=== PATIENT | female | born 1955 | race Hispanic/Latino ===

== ENCOUNTER 2017-12-07 11:49 | Emergency (ER) | payer OTHER ==
[~2017-12-07] VITALS: Ht 165.1 cm; Wt 71.7 kg
[~2017-12-07 11:49] MED LIST: ASPIRIN EC81 M1 PO; DULOXETINE HCL30 MG PO; ESCITALOPRAM OX20 MG PO; FENOFIBRATE145 M1 PO; FLEXERIL 5MG TAB5 MG PO; GABAPENTIN300 M2 PO; IBUPROFEN800 M1 PO; KEFLEX500 MG PO; LETROZOLE2.5 M1 PO; NORCO 5-325 TA1 EACH PO; PANTOPRAZOLE SO40 M1 PO; PERCOCET 325 MG1 TA2 PO; PROTONIX 40MG T40 MG PO; SIMVASTATIN40 MG PO; TYLENOL TAB 32325 MG PO; TYLENOL WITH C1 EACH PO
--- NOTE | 2017-12-07 12:18 | ED INFLUENZA/URI COMPLAINT ---
History of Present Illness General Chief Complaint: General Adult Stated Complaint: COUGHING AND LOST HER VOICE AND VOMITING BLOOD Source: patient, family, old records Exam Limitations: no limitations Vital Signs & Intake/Output Vital Signs & Intake/Output Vital Signs Date Time Temp Pulse Resp B/P B/P Pulse O2 O2 Flow FiO2 Mean Ox Delivery Rate 12/07 1408 97.1 72 18 113/65 97 Room Air 12/07 1245 98 12/07 1221 100 Room Air 12/07 1202 98.1 76 18 119/71 98 Room Air Allergies Coded Allergies: morphine (VOMITING BLOOD 12/27/16) shellfish derived (N/V/D 12/27/16) Reconcile Medications Acetaminophen (Tylenol Extra Strength) 500 MG TABLET 1 TAB PO TID PRN PAIN ( Reported) Albuterol Sulfate (Proair Hfa) 90 MCG HFA.AER.AD 2 PUF INH Q4-6 PRN PRN BRONCHITIS Aspirin (Ecotrin*) 81 MG TABLET.DR 1 TAB PO DAILY HEART/BLOOD (Reported) Azithromycin (Zithromax) 250 MG TABLET 1 DP PO AD BRONCHITIS 2 the first day followed by 1 for days 2-5 Codeine Phosphate/Guaifenesi (Guaifenesin-Codeine Syrup) 10 MG-100 MG/5 ML (5 ML ) LIQUID 10 ML PO Q6HR PRN COUGH Duloxetine HCl 30 MG CAPSULE.DR 1 CAP PO DAILY NERVE PAIN (Reported) Escitalopram Oxalate 20 MG TABLET 1 TAB PO DAILY MENTAL HEALTH (Reported) Fenofibrate Nanocrystallized (Fenofibrate) 145 MG TABLET 1 TAB PO DAILY CHOLESTEROL/TRIGLYCERIDES (Reported) Gabapentin 300 MG CAPSULE 1 CAP PO DAILY NERVE PAIN (Reported) Ibuprofen 800 MG TABLET 1 TAB PO TID PRN PAIN Letrozole (Femara) 2.5 MG TABLET 1 TAB PO DAILY CANCER (Reported) Pantoprazole Sodium 40 MG TABLET.DR 1 TAB PO DAILY GI (Reported) Triage Note: RECEIVED 62 YO FEMALE C/O COLD AND COUGHING X ONE WEEK. PT STARTED LOOSING HER VOICE LAST WEEKEND, STARTED COMING BACK BUT COUGH GOT WORSE AND LOOSING VOICE. PT REPORTS MID STERNAL CHEST PAIN, STARTED A FEW DAYS AGO WHEN HER COUGH GOT WORSE. CP GETS WORSE WITH COUGHING. PT ALSO REPORTS BLOOD IN EMESIS X 3 TIMES. Triage Nurses Notes Reviewed? yes Onset: Abrupt Duration: week(s): (1), constant Timing: recent history Severity: moderate Severity Numbers: 5 Prior Episodes/Possible Cause: no prior episodes No Modifying Factors: none Associated Symptoms: denies HPI: 62-year-old female with history of breast cancer status post mastectomy nonsmoker presents to the ER for evaluation complaining of a nonproductive cough last night. She states that she noticed some blood in her vomit. She denies diarrhea or abdominal pain. She denies shortness of breath fevers however does report positive chills. No sick contacts or recent travel no leg swelling no pain with inspiration. She's been taking [id number] remedies without improvement. ([place]una) Past History Travel History Traveled to [place] past 21 day No Medical History Any Pertinent Medical History? 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 No ([place]) Review of Systems Review of Systems Constitutional: Reports: see HPI. Comments Review of systems: See HPI, All other systems negative. Constitutional, positive chills no fever, HEENT: no sore throat no congestion, no ear pain Cardiovascular: No chest pain , no palpitation Skin: no rashes, no change in skin Respiratory: No dyspnea positive cough no sputum no hemoptysis GI: positive vomiting, no diarrhea Muscle skeletal: No joint pain, no back pain Neurologic: , no headache Heme/endocrine: No bruising Immunology: No lymphadenopathy ([place]) Physical Exam Physical Exam General Appearance: well developed/nourished, no apparent distress Ears, Nose, Throat: normal ENT inspection, moist mucous membrane Comments: Well-developed well-nourished person in no acute distress HEENT: Normal EENT exam; PERRL, EOMI. HEAD is atraumatic. moist mucous membranes. Neck: Supple, normal range of motion Back: Full range of motion Cardiovascular: Regular rate and rhythms no murmur Respiratory: Chest nontender.There were no bony deformities, no asymmetry. No respiratory distress. Patient speaking in full complete sentences. Breath sounds clear to auscultation bilaterally: NO W/R/R Abdomen: Soft, nontender nondistended, Extremity: No edema, full range of motion of extremities Neuro: Alert oriented x3, motor sensory normal. There were no obvious focal neurologic abnormalities. Skin: No appreciable rash on exposed skin, skin is warm and dry. Psych: Mood and affect is normal, memory and judgment is normal. Core Measures Sepsis Present: No Sepsis Focused Exam Completed? No (Guerrero SILVER,Bryn) Progress Differential Diagnosis: influenza, pneumonia, PE, BRONCHITIS, ASTHMA Plan of Care: Orders Procedure Date/time Status Regular Diet 12/07 D Active RAPID VIRAL INFLUENZA A 12/07 1219 Complete TROPONIN LEVEL 12/07 1219 Complete LIPASE 12/07 1219 Complete D-DIMER 12/07 1219 Complete COMPREHENSIVE METABOLIC PANEL 12/07 1219 Complete CBC WITHOUT DIFFERENTIAL 12/07 1218 Complete EKG 12/07 1204 Active Laboratory Tests 12/07/17 1356: D-Dimer High Sensitivty < 200 12/07/17 1323: Anion Gap 15, Estimated GFR > 60, BUN/Creatinine Ratio 20.0, Glucose 92, Calcium 9.8, Total Bilirubin 0.8, AST 51 H, ALT 54 H, Alkaline Phosphatase 115, Troponin I < 0.01, Total Protein 8.0, Albumin 4.6, Globulin 3.4, Albumin/ Globulin Ratio 1.4, Lipase 228, CBC w Diff NO MAN DIFF REQ, RBC 4.51, MCV 88.3, MCH 30.9, MCHC 35.0, RDW 13.0, MPV 9.1, Gran % 42.8, Lymphocytes % 47.7, Monocytes % 7.4, Eosinophils % 1.6, Basophils % 0.5, Absolute Granulocytes 3.0, Absolute Lymphocytes 3.3, Absolute Monocytes 0.5, Absolute Eosinophils 0.1, Absolute Basophils 0 Microbiology 12/07 1324 NASOPHARYN: Influenza Virus A & B Rapid Smear - COMP Patient medicated with DuoNeb Robitussin with codeine labs ordered old records reviewed case discussed with Dr. Aleman agrees with plan Repeat evaluation reports improvement in symptoms with medication pending labs 12/07/2017 2:51:26 PM I discussed with the patient at length all of their results. I had an extensive conversation regarding need for close follow up with their primary care physician this week as well as return precautions. I answered all of their questions, they feel comfortable with the plan and follow-up care. I discussed with the patient/family the medications that they will receive. I gave them signs and symptoms that could indicate an adverse reaction. I have advised them to limit their activities until they can see how they respond to the medication. Diagnostic Imaging: Viewed by Me: Radiology Read. Discussed w/RAD: Radiology Read. Radiology Impression: PATIENT: EZQEUIEL QUIROZ PRESENT AGE: 62 PATIENT ACCOUNT NO: [id number] : 54 LOCATION: [facility] ORDERING PHYSICIAN: Bryn SILVER SERVICE DATE: 12/07/17 EXAM TYPE: RAD - XRY-CHEST XRAY, TWO VIEWS EXAMINATION: XR CHEST CLINICAL INFORMATION: Cough, dyspnea COMPARISON: None TECHNIQUE: 2 views of the chest were obtained. FINDINGS: No focal consolidation, pulmonary edema, or pleural effusion. Stable cardiomediastinal silhouette. Apparent interval coronary artery bypass surgery. IMPRESSION: No acute cardiopulmonary findings. DICTATED BY: Nicholas John MD DATE/TIME DICTATED:12/07/171301 BREAK UP WORKER:LEIDY DATE/TIME TRANSCRIBED:12/07/171301 CONFIDENTIAL, DO NOT COPY WITHOUT APPROPRIATE AUTHORIZATION. <Electronically signed in Other Vendor System> SIGNED BY: Nicholas John MD 12/07/17 1312 Initial ED EKG: normal intervals, normal p-waves, normal QRS complex, normal sinus rhythm Prior EKG: unchanged (Guerrero SILVER,Bryn) Departure Departure Time of Disposition: 1443 Disposition: HOME OR SELF CARE Condition: Stable Clinical Impression Primary Impression: Bronchitis Referrals: Esteban BEGUM,Zhou Potter (PCP/Family) Additional Instructions: Follow-up through primary care physician next week. Z-Weston as directed, proair inhaler as discussed. guaifensin with codeine for cough. this may make you drowsy- no driving or drinking alcohol while taking. return with any concerns Departure Forms: Customer Survey General Discharge Information Prescriptions: Current Visit Scripts Codeine Phosphate/Guaifenesi (Guaifenesin-Codeine Syrup) 10 ML PO Q6HR PRN COUGH #150 ML Azithromycin (Zithromax) 1 DP PO AD #6 TAB 2 the first day followed by 1 for days 2-5 Albuterol Sulfate (Proair Hfa) 2 PUF INH Q4-6 PRN PRN BRONCHITIS #1 INHAL (Guerrero SILVER,Bryn) PA/PROFESSIONAL ENGINEER Co-Sign Statement Statement: ED Attending supervision documentation- [] I saw and evaluated the patient. I have also reviewed all the pertinent lab results and diagnostic results. I agree with the findings and the plan of care as documented in the PA's/PROFESSIONAL ENGINEER's documentation. [X] I have reviewed the ED Record and agree with the PA's/PROFESSIONAL ENGINEER's documentation. [] Additions or exceptions (if any) to the PAs/PROFESSIONAL ENGINEER's note and plan are summarized below: [] (Love BEGUM,Gordo Bryan)
--- NOTE | 2017-12-07 13:12 | RADIOLOGY REPORT ---
EXAMINATION: XR CHEST CLINICAL INFORMATION: Cough, dyspnea COMPARISON: None TECHNIQUE: 2 views of the chest were obtained. FINDINGS: No focal consolidation, pulmonary edema, or pleural effusion. Stable cardiomediastinal silhouette. Apparent interval coronary artery bypass surgery. IMPRESSION: No acute cardiopulmonary findings.
[2017-12-07 14:03] LABS: ABSOLUTE BASOPHIL COUNT 0 /CUMM (0.0-0.2); ABSOLUTE EOSINOPHIL COUNT 0.1 /CUMM (0.0-0.7); ABSOLUTE LYMPH COUNT 3.3 /CUMM (1.2-3.4); ABSOLUTE MONOCYTE COUNT 0.5 /CUMM (0.10-0.60); BASOPHIL % 0.5 % (0.0-2.0); EOSINOPHIL % 1.6 % (0-5); GRANULOCYTE % 42.8 % (42.2-75.2); HEMATOCRIT 39.8 % (37-47); MEAN CORPUSCULAR HGB 30.9 PG (27.0-31.0); MEAN CORPUSCULAR VOLUME 88.3 FL (81.0-99.0); MEAN PLATELET VOLUME 9.1 FL (7.4-10.4); PLATELET COUNT 262 /CUMM (130-400); RED BLOOD CELL CT 4.51 /CUMM (4.20-5.40); WHITE BLOOD CELL COUNT 6.9 /CUMM (4.8-10.8)
[2017-12-07 14:08] VITALS: BP 113/65
[2017-12-07] MEDS ORDERED: FEMARA2.5 M1 PO (14:26)
[2017-12-07] MEDS ORDERED: TYLENOL EXTRA500 M2 PO (14:28)
[2017-12-07] MEDS ORDERED: GUAIFEN-CODEIN118 M1 PO (14:48)
[2017-12-07] MEDS ORDERED: PROAIR HFA8.5 GM INH ×2 (14:48→14:55)
[2017-12-07] MEDS ORDERED: ZITHROMAX250 M2 PO ×2 (14:48→14:55)
[2017-12-07] MEDS ORDERED: GUAIFENESIN-CODE5 M1 PO (14:55)
== END 2017-12-07 14:54 ==
LOC: ERH 11:49
PROVIDERS: Physician Assistant Medical
DX: J40 Bronchitis, not specified as acute or chronic (principal); Z87.891 Personal history of nicotine dependence; R07.9 Chest pain, unspecified
CPT/HCPCS: 71046; 87804; 87804-59; 93005; 93010; 96374; J2930